=== PATIENT | male | born 1965 | race Caucasian/White ===

== ENCOUNTER 2017-09-12 21:32 | Emergency (ER) | payer OTHER ==
[2017-09-12 21:41] VITALS: TEMP 98.2
[2017-09-12] MEDS ORDERED: PROPARACAINE 0.5% 15 ML OPHT DROP ONE (22:35)
[2017-09-12] MEDS ORDERED: FLUORESCEIN SODIUM 1 MG STRIP OP ONE ×2 (22:35→22:36)
[2017-09-12] MEDS ORDERED: PROPARACAINE 0.5% 15 ML OPHT DROP OP ONE (22:37)
--- NOTE | 2017-09-12 22:50 | EDPHY ---
H & P Stated Complaint: Foreign body in right eye. - Personal History Current Tetanus/Diphtheria Vaccine: Unsure Current Tetanus Diphtheria and Acellular Pertussis (TDAP): Unsure - Medical/Surgical History Hx Asthma: No Hx Chronic Respiratory Disease: No Hx Diabetes: No Hx Cardiac Disease: No Hx Renal Disease: No Hx Cirrhosis: No Hx Alcoholism: No Hx HIV/AIDS: No Hx Splenectomy or Spleen Trauma: No Other PMH: Hypothyroid. - Social History Smoking Status: Never smoked Time Seen by Provider: 09/12/17 22:27 HPI/ROS: Chief complaint: Wood in right eye History of present illness: This is a 51-year-old male who presents to the emergency department concerned he has gotten wood in his right eye. Patient was using a hand saw this afternoon felt a piece of wood go into his eye. Since the felt like it has been in there. He reports irritation. He has irrigated his eye but sensation remains. States he has blurry vision right now. He denies other associated signs or symptoms. He does not use contacts. ( Blake Mendoza) - Physical Exam Exam: General: Alert, nontoxic Eyes: Tearing of the right eye. Diffuse injection of the conjunctiva. No subconjunctival hemorrhage. No hyphema. No hypopyon. Left eye unremarkable. PERRLA. EOM intact. Eyelids were retracted and flipped, no foreign bodies identified. Skin: Periorbital tissue unremarkable. (Blake Mendoza) Constitutional: Initial Vital Signs Temperature (C) 36.8 C 09/12/17 21:37 Heart Rate 59 L 09/12/17 21:37 Respiratory Rate 16 09/12/17 21:37 Blood Pressure 139/86 H 09/12/17 21:37 O2 Sat (%) 99 09/12/17 21:37 O2 Delivery Mode Room Air Allergies/Adverse Reactions: No Known Allergies Allergy (Unverified 09/12/17 21:41) Home Medications: Medication Instructions Recorded Levothyroxine 09/12/17 Medical Decision Making Procedures: Visual acuity 20/70 right eye, 20/15 left eye, 20/20 bilaterally Patient's eye was stained with floor seen. It was examined with the slit lamp using blue and white light. Filling defect noted 9:00 position on the border of the cornea and sclera. No foreign bodies visualized. No Tish sign. (Blake Mendoza) ED Course/Re-evaluation: Patient seen in conjunction with my attending physician Dr. Yuli Patrick. Patient presents for right eye discomfort, concerned he has a foreign body in his eye. He does appear to have an abrasion. No foreign body noted. No evidence of globe rupture. Patient will be started on Polytrim eyedrops. Home care is discussed. He is to follow up with ophthalmology for recheck and referral information is given. Return precautions are given. Patient voiced understanding and agreement with plan. (Blake Mendoza) Differential Diagnosis: Included but not limited to corneal abrasion, corneal foreign body, globe rupture (Blake Mendoza) Other Provider: ED PA DICTATION I evaluated and participated in the management of the patient. I also evaluated the patient independently. My co-signature indicates that I have reviewed this chart and I agree with the findings and plan of care as documented. My personal H&P findings include: 51-year-old male with foreign body sensation of right thigh. I independently performed a slit lamp examination and concur her with findings. The patient does appear to have a corneal abrasion without any foreign body within the globe. (Yuli Harris) - Data Points Medications Given: Discontinued Medications Hydrocodone Bitart/Acetaminophen ([place] 5/325mg Prepack#6) 1 btl TAKEHOME EDNOW ONE Stop: 09/12/17 22:59 Last Admin: 09/12/17 23:22 Dose: 1 btl Fluorescein Sodium (Btlem-I-Lgduo) 1 mg OP EDNOW ONE Stop: 09/12/17 22:37 Last Admin: 09/12/17 22:37 Dose: 1 mg Polymyxin/Trimethoprim Sulfate (Polytrim Opht Drops) 1 drops RTEYE Q4 TOMMIE Stop: 10/13/17 01:59 Last Admin: 09/12/17 23:21 Dose: 1 drop Proparacaine HCl (Alcaine 0.5%) 1 drops OP EDNOW ONE Stop: 09/12/17 22:38 Last Admin: 09/12/17 22:38 Dose: 1 drop Departure - Departure Disposition: Home, Routine, Self-Care Clinical Impression: Corneal abrasion Condition: Good Instructions: Hydrocodone/Acetaminophen (By mouth), Polymyxin B/Trimethoprim ( Into the eye), Corneal Abrasion (ED) Additional Instructions: Follow-up with Ophthalmology on Thursday for recheck If symptoms worsen or new symptoms develop return to the emergency room for recheck Referrals: Ruddy Menon DO [Primary Care Provider] - As per Instructions Eric Abdullahi MD [Medical Doctor] - As per Instructions
[2017-09-12] MEDS ORDERED: HYDROCOD/APAP 5/325 PREPACK#6 BTL TAKEHOME ONE (22:58)
[2017-09-12 23:23] VITALS: BP 128/81; PULSE 53; RESP 14; O2SAT 96
[2017-09-13] MEDS ORDERED: POLYMYXIN B SULFATE/TMP 10 ML OPHT.BTL RTEYE SCH (02:00)
== END 2017-09-12 23:27 | disposition home or self-care (01) ==
DX: S05.01XA Injury of conjunctiva and corneal abrasion without foreign body, right eye, initial encounter (principal); X58.XXXA Exposure to other specified factors, initial encounter; Y93.89 Activity, other specified